=== PATIENT | male | born 1995 | race Caucasian/White ===

== ENCOUNTER 2017-12-21 19:30 | Emergency (ER) | payer BC ==
[2017-12-21 20:46] VITALS: BP 117/73
--- NOTE | 2017-12-21 21:11 | UC ---
Skin Complaint HPI - History of Current Complaint Chief Complaint: UCSkin Time Seen by Provider: 12/21/17 21:04 Stated Complaint: BUG BITE ABCESS Pain Intensity: 4 - Allergy/Home Medications Allergies/Adverse Reactions: Allergies Allergy/AdvReac Type Severity Reaction Status Date / Time No Known Allergies Allergy Verified 12/21/17 20:46 PMH/Surg Hx/FS Hx/Imm Hx - Surgical History Surgical History: None - Social History Alcohol Use: Occasionally Substance Use Type: None Smoking Status (MU): Never Smoked Tobacco Physical Exam Vital Signs: Initial Vital Signs Temp 98.1 F 12/21/17 20:43 Pulse 57 12/21/17 20:43 Resp 16 12/21/17 20:43 BP 117/73 12/21/17 20:43 Pulse Ox 98 12/21/17 20:43 Discharge - Sign-Out/Discharge Documenting (check all that apply): Discharge/Admit/Transfer - Discharge Plan Condition: Stable Disposition: HOME Prescriptions: Cephalexin CAP* [Keflex CAP*] 500 mg PO QID #20 cap Patient Education Materials: Diphenhydramine (By mouth), Hydrocortisone (On the skin) Referrals: [facility] [place] [facility]ERRAL [Outside] - If Needed Additional Instructions: Redness that UC on your leg from the bug bite is not infection. It is normal to have redness around the bug bite for the first several days after you are bitten. This seizure bodies response to the foreign protein, the bug saliva that has been injected into your skin during the bite. Initial treatment is Benadryl and cortisone cream cool compresses. Avoid itching if possible and use direct pressure from your fingertips on the site that itches to avoid scratching and causing an infection and open areas. The wound worsens or fails to improve in the next 4-5 days a repeat N reasonable to start antibiotics. - Billing Disposition and Condition Condition: STABLE Disposition: HOME
== END 2017-12-21 21:24 | disposition home or self-care (01) ==
LOC: UCEAST 19:30
DX: S80.869A Insect bite (nonvenomous), unspecified lower leg, initial encounter (principal); W57.XXXA Bitten or stung by nonvenomous insect and other nonvenomous arthropods, initial encounter; Y92.9 Unspecified place or not applicable
CPT/HCPCS: 99202; G0463

== ENCOUNTER 2019-04-22 07:26 | Emergency (ER) | payer BC ==
--- OUTSIDE RECORDS SUMMARY | 2019-04-22 07:32 | XMS REPORT | Continuity of Care Document ---
:1995 External Reference #:[id number] Author Name Tiana Sandra M.D. Address [address] [place] [address] Care Team Providers Name Role Phone Tiana Sandra M.D. - Family Medicine Care Team Information Procurement Coordinator Unavailable Problems Description No Information Available Social History Type Date Description Comments Sex Unknown Tobacco Use Start: Unknown End: Former Cigarette Smoker 1 black and mild every week or two x 1 year Smoking Status Reviewed: 03/28/19 Former Cigarette Smoker 1 black and mild every week or two x 1 year ETOH Use Occasional Recreational Drug Use Never Used Drugs Tobacco Use Start: Unknown End: Patient is a former Unknown smoker Exercise Type/Frequency Plays football sporadically Exercise Type/Frequency Plays softball sporadically Allergies, Adverse Reactions, Alerts Description No Known Drug Allergies Medications Active Medications SIG Qnty Indications Ordering Provider Date Sertraline HCL 1 by mouth 30tabs F33.9 Tiana Sandra M.D. 03/28/2019 50mg every day Tablets Immunizations Description No Information Available Vital Signs Date Vital Result Comment 03/28/2019 9:04am BP Systolic 126 mmHg BP Diastolic 60 mmHg Heart Rate 78 /min Body Temperature 98.1 F Respiratory Rate 16 /min Height 72.5 inches 6'0.50" measured 03/28/19 Weight 208.12 lb BMI (Body Mass Index) 27.8 kg/m2 06/07/2017 4:55pm BP Systolic 120 mmHg BP Diastolic 90 mmHg Heart Rate 80 /min Body Temperature 99.0 F Respiratory Rate 18 /min Height 72.5 inches 6'0.50" Weight 192.00 lb BMI (Body Mass Index) 25.7 kg/m2 Results Description No Information Available Procedures Description No Information Available Medical Devices Description No Information Available Encounters Description No Information Available Assessments Date Code Description Provider 03/28/2019 Z00.00 Encounter for general adult medical examination Tiana Sandra M.D. without abnormal findings 03/28/2019 F33.9 Major depressive disorder, recurrent, Tiana Sandra M.D. unspecified Plan of Treatment 03/28/2019 - Tiana Sandra M.D.Z00.00 Encounter for general adult medical examination without abnormal findingsComments:Encourage an active and healthy lifestyle with proper eating habits including fruits, vegetables, 6-8 glasses of water a day and monitoring portion size. Recommend 30 minutes of daily physical activityincluding walking, aerobic exercise, sports, yoga or dance. Any activity is better than no activity.Recommend routine eye and dental exams. Next physical is due in 1-2 years. Recommend annual influenza [id number] Major depressive disorder, recurrent, unspecifiedNew Medication:Sertraline HCL 50 mg - 1 by mouth every dayComments:Reviewed adverse side effects of medication. Advised to call the office if experiencing symptoms. Patient verbalized understanding. Take medication for at least one week as it can take 1 week to build tolerance to side effects of medication. 4-6 weeks for full medication effect. Take medication daily,consider therapy if not already started. Call office right away if symptoms worsen including worsening mood/ anxiety or suicidal ideation. Suicide prevention hot line/Crisis line: 0-111-530 -9068 or 222-131-6404Ndxiqbmes 24 hours a day, 7 days a week . It is free and confidential. https://suicidepreventionlifeline.org/ Follow up in 4-6 weeks or sooner if concerns ariseFollow up:1 moAllComments:Medication Management Patient Understands medications he's taking? Yes No Are there Barriersto Adherence? Yes No Has the patient been asked about herbal supplements and therapies, and OTC meds? Yes No Functional Status Description No Information Available Mental Status Description No Information Available Referrals Description No Information Available
[2019-04-22 07:37] VITALS: BP 138/77
--- NOTE | 2019-04-22 08:08 | UC ---
Respiratory Complaint HPI - HPI Summary HPI Summary: Patient is a 23-year-old male here with sinus congestion. Patient's had 2 days of sinus and nasal congestion. Patient has clear discharge from his nose. Patient has associated throat tickle. Patient has a fever, chills, ear pain, cough, abdominal pain, vomiting, diarrhea. Patient has frequent sinus infections of his last 12 years ago. Patient does have seasonal allergies in the fall and takes Zyrtec for that. Medications reviewed - History of Current Complaint Chief Complaint: UCGeneralIllness Stated Complaint: SINUS ISSUE Time Seen by Provider: 04/22/19 07:56 Pain Intensity: 1 - Allergies/Home Medications Allergies/Adverse Reactions: Allergies Allergy/AdvReac Type Severity Reaction Status Date / Time No Known Allergies Allergy Verified 04/22/19 07:36 Home Medications: Home Medications guaiFENesin [Mucinex] 600 mg PO 04/22/19 [History] PMH/Surg Hx/FS Hx/Imm Hx Previously Healthy: Yes - Surgical History Surgical History: None - Family History Known Family History: Positive: None, Non-Contributory - Social History Alcohol Use: Occasionally Substance Use Type: None Smoking Status (MU): Former Smoker Review of Systems All Other Systems Reviewed And Are Negative: Yes Constitutional: Negative: Fever, Chills Skin: Negative: Rash Eyes: Negative: Drainage, Eye Redness ENT: Positive: Nasal Discharge, Sinus Congestion, Sinus Pain/Tenderness. Negative: Sore Throat, Ear Ache Respiratory: Negative: Shortness Of Breath, Cough Cardiovascular: Negative: Chest Pain Gastrointestinal: Negative: Vomiting, Diarrhea Physical Exam - Summary Physical Exam Summary: Vital Signs Reviewed: Yes A+Ox3, no distress Eyes: Conjunctiva Clear, PERRL. EOM intact and full ENT: Tenderness over the frontal sinuses. No pharyngeal erythema or exudate. Uvula midline. Neck: No lymphadenopathy Respiratory: Positive: No respiratory distress, No accessory muscle use + CTA throughout no w/r Cardiovascular: RRR nl s1, s2 no m/r CBT <2 sec abd soft + BS nt/nd no guarding, no distension Musculoskeletal Exam: HIGHTOWER x 4 without difficulty Strength Intact, ROM Intact Neurological: Positive: Alert, + sensation throughout Psychological: Positive: Normal Response To Family Skin: no rash, no ecchymosis Vital Signs: Initial Vital Signs Temp 97.9 F 04/22/19 07:33 Pulse 100 04/22/19 07:33 Resp 14 04/22/19 07:33 BP 138/77 04/22/19 07:33 Pulse Ox 98 04/22/19 07:33 Respiratory Course/Dx - Course Course Of Treatment: Patient is here with sinus congestion likely viral versus allergic in nature. Patient already takes Zyrtec every day so he was started on Flonase. Patient was encouraged to restart his Nida pot and to use steam to help loosen mucus. Patient is getting in 1 week and is concerned about an infectious etiology. Patient was prescribed a [id number] antibiotic in case his symptoms do not get better. - Differential Dx/Diagnosis Provider Diagnosis: Sinusitis Discharge ED - Sign-Out/Discharge Documenting (check all that apply): Patient Departure All imaging exams completed and their final reports reviewed: No Studies - Discharge Plan Condition: Stable Disposition: HOME Prescriptions: Amoxicillin/Clavulanate TAB* [Augmentin TAB 875*] 875 mg PO BID 7 Days #14 tab Patient Education Materials: Sinusitis (ED) Referrals: No Primary Care Phys,NOPCP [Primary Care Provider] - Additional Instructions: Please start doing Flonase twice a day, one spray in each nostril Please start doing your Nida pot and use steam to loosen the mucus in your nose Please continue your Zyrtec Fill your antibiotic prescription on Wednesday if you're not feeling better Congrats on getting !! - Billing Disposition and Condition Condition: STABLE Disposition: Home
== END 2019-04-22 08:08 | disposition home or self-care (01) ==
LOC: UCEAST 07:26
DX: J32.9 Chronic sinusitis, unspecified (principal); J30.2 Other seasonal allergic rhinitis; Z87.891 Personal history of nicotine dependence
CPT/HCPCS: 99212; G0463